=== PATIENT | female | born 1975 | race Caucasian/White ===

== ENCOUNTER 2021-08-13 09:12 | Outpatient (CLI) | payer BC, SELFPAY ==
[2021-08-13 09:25] VITALS: BP 134/86; PULSE 82; RESP 18; TEMP 36.7; O2SAT 99; BMI 22.3
[2021-08-13 10:22] VITALS: BP 106/71; PULSE 69; RESP 17; TEMP 36.7; O2SAT 98
[2021-08-13 11:20] VITALS: BP 109/66; PULSE 77; RESP 17; TEMP 36.7; O2SAT 98
[2021-08-13 11:24] VITALS: BP 109/66; PULSE 77; RESP 17; TEMP 36.7; O2SAT 98
== END 2021-08-13 09:13 | disposition home or self-care (01) ==
LOC: OPS 09:24
PROVIDERS: Visit Provider Family Medicine
DX: U07.1 COVID-19 (principal)
CPT/HCPCS: 96365